=== PATIENT | female | born 1985 | race Caucasian/White ===

== ENCOUNTER → 2020-08-12 10:50 | Outpatient (BNVA) | payer OTHER, SELFPAY | PROVIDERS: Visit Provider Advanced Practice Midwife | DX: Z32.01 Encounter for pregnancy test, result positive (principal) | CPT/HCPCS: 81025 ==

== ENCOUNTER → 2020-08-14 14:07 | Outpatient (BNVA) | payer OTHER, SELFPAY | PROVIDERS: Visit Provider Advanced Practice Midwife | DX: Z13.89 Encounter for screening for other disorder (principal) | CPT/HCPCS: 99212 ==

== ENCOUNTER 2020-09-04 09:24 | Outpatient (REF) | payer OTHER, SELFPAY ==
[2020-09-04 09:51] LABS: MANUAL DIFF FLAG NO
[2020-09-04 09:55] LABS: Basophils Absolute Auto 0.1 X10*3/uL (0.0-0.2); Basophils Percent Auto 0.6 % (0-2); Eosinophils Absolute Auto 0.1 X10*3/uL (0.0-0.4); Eosinophils Percent Auto 0.7 % (0-4); Hematocrit 38.4 % (37-47); Hemoglobin 12.7 g/dl (12.0-16.0); Imm Gran Abs Auto 0.06 X10*3/uL (0.00-0.03); Imm Gran Pct Auto 0.5 % (0.0-0.4); Lymphocytes Percent Auto 15.6 % (20-40); Mean Corpuscular HGB Conc 33.1 g/dl (31.0-35.0); Mean Corpuscular Hemoglobin 29.4 pg (27.0-33.0); Mean Corpuscular Volume 88.9 fL (80-98); Monocytes Absolute Auto 0.6 X10*3/uL (0.1-1.2); Monocytes Percent Auto 4.6 % (2-11); Neutrophils Absolute Auto 9.9 X10*3/uL (2.0-8.3); Platelet Count 365 X10*3/uL (160-400); Red Blood Count 4.32 X10*6/uL (4.20-5.50); Red Cell Distribution Width 12.8 % (11.0-16.0); White Blood Count 12.7 X10*3/uL (4.8-10.8)
[2020-09-04 10:48] LABS: HBsAGNum1 0.17 S/CO (0.00-0.99); HIV AB/AG Nonreactive (Nonreactive); HIV Num 1 0.06 S/CO (0.00-0.99); Hepatitis B Surface Antigen Negative (Negative)
[2020-09-04 11:12] LABS: ~HepC Num1 0.08 S/CO (0.00-0.79); ~Hepatitis C Antibody Nonreactive (Nonreactive)
[2020-09-04 11:38] LABS: Amphetamine Screen Urine Not Detected (Not Detect); Barbiturates, Urine Not Detected (Not Detect); Benzodiazepines Screen Urine Not Detected (Not Detect); Cannabinoid Screen Urine Not Detected (Not Detect); Cocaine Screen Urine Not Detected (Not Detect); Opiate Screen Urine Not Detected (Not Detect); Phencyclidine Screen Urine Not Detected (Not Detect)
[2020-09-05 04:31] LABS: Syphilis Screen Nonreactive (Nonreactive)
[2020-09-05 14:13] LABS: Rubella IgG Antibody 8.09 Index
== END 2020-09-04 09:25 | disposition home or self-care (01) ==
LOC: HO.LAB 09:24
PROVIDERS: PCP Internal Medicine; Visit Provider Advanced Practice Midwife
DX: O34.219 Maternal care for unspecified type scar from previous cesarean delivery (principal)
CPT/HCPCS: 80307; 85025; 86762; 86780; 86787; 86803; 86850; 86900; 86901; 87086; 87340; 87389

== ENCOUNTER 2020-09-10 15:47 | Outpatient (REF) | payer OTHER, SELFPAY ==
[2020-09-11 03:44] LABS: CT PCR NOT DETECTED (Not Detect.); NG PCR NOT DETECTED (Not Detect.)
[2020-09-11 14:32] LABS: BV Int Neg Control Negative (Negative); BV Int Pos Control Positive (Positive)
[2020-09-13 06:41] LABS: HPV mRNA E6/E7 rflx Not Detected (Not Detected)
== END 2020-09-10 15:48 | disposition home or self-care (01) ==
LOC: HO.LAB 15:47
PROVIDERS: Visit Provider Advanced Practice Midwife
DX: O34.219 Maternal care for unspecified type scar from previous cesarean delivery (principal); O09.521 Supervision of elderly multigravida, first trimester; Z3A.09 9 weeks gestation of pregnancy; Z20.2 Contact with and (suspected) exposure to infections with a predominantly sexual mode of transmission
CPT/HCPCS: 36415; 87480; 87491; 87510; 87591; 87624; 87660; 88142; 99212

== ENCOUNTER 2020-09-26 09:00 | Outpatient (REF) | payer OTHER, SELFPAY ==
--- NOTE | ~2020-09-26 | US_ITS ---
EXAMINATION: OBSTETRICAL ULTRASOUND, FIRST TRIMESTER HISTORY: 35-year-old at 11.6 weeks of gestation AMA Antidepressant medication NT screening COMPARISON: None TECHNIQUE: Real time transabdominal imaging with color and M-mode Doppler. FINDINGS: A single, live IUP CRL of 63.0 mm c/w 12.5wks is noted. Heart Rate: 158 beats per minute. Normal yolk sac seen. NT was 1.12.mm. NB Present The embryo appears sonographically wnl for this GA. Right ovary is within normal limits. The left was not visualized GESTATIONAL AGE: 1. Established GA: 11.6 wks 2. GA from AUA: 12.5 wks ESTIMATED DATE OF DELIVERY: 1. Established BELA: 04/11/2021 2. BELA from [facility]: 04/05/1931 US/US OB 1T nuc measure IMPRESSION: 1. A single live IUP 2. Size equals dates 3. NT of 1.12 mm MFM Consultation: I reviewed the ultrasound findings along with significance of NT measurement. The NT of less than 3mm is generally reassuring. However, the sensitivity for T21 detection is only 60%. I reviewed the availability of serum aneuploidy screening which includes cell-free DNA and placental protein based tests. I discussed the sensitivity, false-positive rate, and other limitations associated with each test. I also reviewed the availability of invasive diagnostic tests that are associated small but definite risk of miscarriage. We also reviewed the differences between screening tests and diagnostic tests. After our discussion, she opted for the First trimester screening that is based on cell-free DNA or non-invasive testing (NIPT). Patient is taking venlafaxine which is a combined nor epinephrine and cerebellar tendon reuptake inhibitor for depression. Its use in is acceptable as long as there is a maternal indication. To date animal studies have not shown increased incidence of congenital abnormalities. There is not an data in human for any conclusions. There is a increased the risk of adaptation syndrome. Neonatologists should be made aware. She has a history of migraines and is Rizatriptan as needed. Its category C. Insufficient human data but there are animal studies seem to suggest that its use is not increase the risk of congenital abnormalities. However there are reports of a spontaneous miscarriage in the first trimester but not statistically significant. A follow up at 18 weeks for survey has been scheduled. Thank you very much for this referral. Total time 30 minutes. The time spent was devoted to counseling the patient about the disease and diagnosis, coordinating care including reviewing her records, pertinent lab data and studies, as well as discussing diagnostic evaluation and workup, plan therapeutic interventions and future disposition of care. This includes any additional research needed to obtain further information in formulating the plan of care of this patient. This note was generated with a voice recognition program. Please excuse any errors which may have been overlooked during my review of this note. Sometimes these errors may affect the content or meaning of a given sentence.
== END 2020-09-26 09:01 | disposition home or self-care (01) ==
LOC: HO.US 09:00
PROVIDERS: PCP Internal Medicine; Visit Provider Advanced Practice Midwife
DX: Z36.82 Encounter for antenatal screening for nuchal translucency (principal)
CPT/HCPCS: 76813

== ENCOUNTER → 2020-10-08 15:46 | Outpatient (BNVA) | payer OTHER, SELFPAY | PROVIDERS: PCP Internal Medicine; Visit Provider Obstetrics & Gynecology | DX: Z34.90 Encounter for supervision of normal pregnancy, unspecified, unspecified trimester (principal); Z3A.13 13 weeks gestation of pregnancy | CPT/HCPCS: 81003; 99212 ==

== ENCOUNTER 2020-11-05 15:07 | Outpatient (REF) | payer OTHER, SELFPAY ==
[2020-11-14 17:47] LABS: CF Ethnicity CAUCASIAN; Cystic Fibrosis NEGATIVE (NEGATIVE)
== END 2020-11-05 15:08 | disposition home or self-care (01) ==
LOC: HO.LAB 15:07
PROVIDERS: PCP Internal Medicine; Visit Provider Obstetrics & Gynecology
DX: Z34.90 Encounter for supervision of normal pregnancy, unspecified, unspecified trimester (principal)
CPT/HCPCS: 36415; 81220; 82105; 99212

== ENCOUNTER 2020-11-14 13:03 | Outpatient (REF) | payer OTHER, SELFPAY ==
--- NOTE | ~2020-11-14 | US_ITS ---
EXAMINATION: US OBSTETRICAL CLINICAL INFORMATION: 35-year-old at 19.4 weeks of gestation AMA Suspected anomaly COMPARISON: 09/27/2019 TECHNIQUE: Real-time transabdominal ultrasound was performed using C1-5 megahertz transducer. FINDINGS: A single, active, fetus is seen in transverse presentation. The placenta is posterior without previa, and the amniotic fluid volume is wnl. MEASUREMENTS: 1. Biparietal Diameter: 4.5 cm; 19.4 wks 2. Occipital Frontal Diameter: 5.9 cm 3. Head Circumference: 16.8 cm; 19.3 wks 4. Abdominal Circumference: 14.3 cm; 19.5 wks 5. Femur Length: 2.7 cm; 18.3 wks 6. Humerus Length: 2.9 cm; 19.3 wks 7. Tibia Length: 2.5 cm; 19.0 wks 8. Ulna Length: 2.6 cm; 19.2 wks 9. Lateral ventricle: 0.7 cm 10. Cerebellum: 1.9 cm; 19 point wks 11. Cisterna Magna: 0.5 cm 12. Nuchal Fold: 3.6 mm 13. Heart Rate: 153 beats per minute Rt ovary: normal Lt ovary: normal Cervical length 4.7 cm on T/A. GESTATIONAL AGE: 1. Established GA: 18.6 wks 2. GA from [facility]: 19.2 wks ESTIMATED DATE OF DELIVERY: 1. Established BELA: 04/11/2021 2. BELA from [facility]: 04/08/2021 ANATOMY: The visualized anatomy includes but not limited to: 1. Cranium: Normal 2. Intracranial anatomy: cavum septum pellucidi, lateral ventricles, choroid plexus, cerebellum, posterior fossa, third and fourth ventricles. 3. face: orbits, lip/palate, profile, nasal bone 4. Heart: four-chamber view of the heart, ventricular septum, foramen ovale, pulmonary vein, left and right outflow tracts, three-vessel view, 3 vessel trachea view, aortic and ductal arches, situs.. 5. Diaphragm: Normal 6. Abdominal wall: Normal 7. Cord Insertion: Normal 8. Spine: Cervical, thoracic, lumbar, sacral. 9. Stomach: Normal size and shape 10. Right Kidney: Normal 11. Left Kidney: Normal 12. 3 vessel cord: Normal 13. Upper extremity: Open hands, fifth digit. 14. Lower extremity: Tibia, fibula, bilateral feet. 15. Bladder: Normal 16. Genitalia: Male, patient aware US/US OB /maternal detail IMPRESSION: 1. Single, living, intrauterine with appropriate biometry. 2. Normal survey DISCUSSION: I reviewed today's ultrasound findings. We discussed the limitations of ultrasound in diagnosing aneuploidy and other congenital abnormalities. I reviewed the differences between screening test and diagnostic test. Amniocentesis was discussed and declined. She was informed that the baseline incidence of congenital abnormalities is approximately 3-5%. Not all these conditions are diagnosable in utero. RECOMMENDATIONS: 1. Follow-up when necessary. Thank you for allowing me to participate in her care. Total time 30 minutes. The time spent was devoted to counseling the patient about the disease and diagnosis, coordinating care including reviewing her records, pertinent lab data and studies, as well as discussing diagnostic evaluation and workup, plan therapeutic interventions and future disposition of care. This includes any additional research needed to obtain further information in formulating the plan of care of this patient. This note was generated with a voice recognition program. Please excuse any errors which may have been overlooked during my review of this note. Sometimes these errors may affect the content or meaning of a given sentence.
== END 2020-11-14 13:04 | disposition home or self-care (01) ==
LOC: HO.US 13:03
PROVIDERS: Visit Provider Obstetrics & Gynecology
DX: Z34.92 Encounter for supervision of normal pregnancy, unspecified, second trimester (principal); Z36.3 Encounter for antenatal screening for malformations
CPT/HCPCS: 76811

== ENCOUNTER → 2020-12-03 10:50 | Outpatient (BNVA) | payer OTHER, SELFPAY | PROVIDERS: PCP Internal Medicine; Visit Provider Obstetrics & Gynecology | DX: Z34.92 Encounter for supervision of normal pregnancy, unspecified, second trimester (principal); Z3A.21 21 weeks gestation of pregnancy | CPT/HCPCS: 99212 ==

== ENCOUNTER → 2020-12-31 10:33 | Outpatient (BNVA) | payer OTHER, SELFPAY | PROVIDERS: PCP Internal Medicine; Visit Provider Obstetrics & Gynecology | DX: O09.522 Supervision of elderly multigravida, second trimester (principal); O34.219 Maternal care for unspecified type scar from previous cesarean delivery; O99.342 Other mental disorders complicating pregnancy, second trimester; F41.8 Other specified anxiety disorders; Z3A.25 25 weeks gestation of pregnancy | CPT/HCPCS: 99212 ==

== ENCOUNTER 2021-01-20 11:04 | Outpatient (REF) | payer OTHER, SELFPAY ==
[2021-01-20 13:06] LABS: Hematocrit 32.6 % (37-47); Hemoglobin 10.5 g/dl (12.0-16.0); Mean Corpuscular HGB Conc 32.2 g/dl (31.0-35.0); Mean Corpuscular Hemoglobin 28.2 pg (27.0-33.0); Mean Corpuscular Volume 87.6 fL (80-98); Mean Platelet Volume 11.4 fL (9.4-12.3); Platelet Count 282 X10*3/uL (160-400); Red Blood Count 3.72 X10*6/uL (4.20-5.50); Red Cell Distribution Width 13.8 % (11.0-16.0); White Blood Count 14.9 X10*3/uL (4.8-10.8)
[2021-01-20 13:17] LABS: Glucose 1 Hour PP 50gm Dose 163 mg/dL (60-140)
[2021-01-21 09:17] LABS: Syphilis Screen Nonreactive (Nonreactive)
== END 2021-01-20 11:05 | disposition home or self-care (01) ==
LOC: HO.LAB 11:04
PROVIDERS: PCP Internal Medicine; Visit Provider Obstetrics & Gynecology
DX: O99.810 Abnormal glucose complicating pregnancy (principal); Z3A.00 Weeks of gestation of pregnancy not specified
CPT/HCPCS: 36415; 85027; 86780

== ENCOUNTER → 2021-01-21 10:44 | Outpatient (BNVA) | payer OTHER, SELFPAY | PROVIDERS: Visit Provider Obstetrics & Gynecology | DX: O99.810 Abnormal glucose complicating pregnancy (principal); O34.219 Maternal care for unspecified type scar from previous cesarean delivery; Z3A.28 28 weeks gestation of pregnancy | CPT/HCPCS: 99212 ==

== ENCOUNTER 2021-01-29 10:03 | Outpatient (REF) | payer OTHER, SELFPAY ==
[2021-01-29 11:42] LABS: Glucose Fasting 83 mg/dL (60-99)
[2021-01-29 12:05] LABS: Glucose 1 Hour 181 mg/dL
[2021-01-29 13:01] LABS: Glucose 2 Hour 137 mg/dL
[2021-01-29 14:54] LABS: Glucose 3 Hour 121 mg/dL
== END 2021-01-29 10:04 | disposition home or self-care (01) ==
LOC: HO.LAB 10:03
PROVIDERS: PCP Internal Medicine; Visit Provider Obstetrics & Gynecology
DX: O99.810 Abnormal glucose complicating pregnancy (principal)
CPT/HCPCS: 36415; 82951

== ENCOUNTER → 2021-02-06 13:01 | Outpatient (BNVA) | payer OTHER, SELFPAY | PROVIDERS: PCP Internal Medicine; Visit Provider Advanced Practice Midwife ==

== ENCOUNTER → 2021-02-11 10:51 | Outpatient (BNVA) | payer OTHER, SELFPAY | PROVIDERS: PCP Internal Medicine; Visit Provider Advanced Practice Midwife | DX: Z34.83 Encounter for supervision of other normal pregnancy, third trimester (principal); Z3A.31 31 weeks gestation of pregnancy | CPT/HCPCS: 81003; 99212 ==

== ENCOUNTER 2021-02-13 12:57 | Outpatient (REF) | payer OTHER, SELFPAY ==
--- NOTE | ~2021-02-13 | US_ITS ---
EXAMINATION: OBSTETRICAL ULTRASOUND, Follow up HISTORY: 36-year-old at the 31.6 weeks of gestation GDM on diet AMA COMPARISON: 11/14/2020 TECHNIQUE: Real time transabdominal imaging with color and M-mode Doppler. PRESENTATION: Vertex PLACENTA LOCATION: Posterior AMNIOTIC FLUID: EFREN 13.4 cm MEASUREMENTS: 1. Biparietal Diameter: 8.1 cm; 32.5 wks 2. Head Circumference: 31.0 cm; 34.5 wks 3. Abdominal Circumference: 30.1 cm; 34.1 wks 4. Femur Length: 5.8 cm; 30.2 wks 5. Heart Rate: 138 beats per minute WEIGHT: EFW: 2078 grams (4 lbs 9 oz) -- 73 %. BIOPHYSICAL PROFILE: Motion: 2 Tone: 2 Breathin Amniotic Fluid: 2 Total score: 8/8 GESTATIONAL AGE: 1. Established GA: 31.6 wks 2. GA from AUA: 33.0 wks ESTIMATED DATE OF DELIVERY: 1. Established BELA: 04/11/2021 2. BELA from COUNTS INCLUDE 234 BEDS AT THE [facility]: 04/03/2021 US/US OB follow up IMPRESSION: 1. A single active fetus is in vertex presentation 2. Size equals dates 3. BPP of 8/8 with normal EFREN According to the patient her glucose values are within target range on diet. 2 hour postprandial after dinner last night was 114. The fasting this morning was 92. Denies having had GDM with her first . I discussed the increased the incidence of macrosomia, polyhydramnios and hypoglycemia in women with gestational diabetes. As long as her glycemic values are within normal range on diet alone, follow-up in approximately 3 weeks is suggested (not scheduled). Thank you very much for this referral. Total time 30 minutes. The time spent was devoted to counseling the patient about the disease and diagnosis, coordinating care including reviewing her records, pertinent lab data and studies, as well as discussing diagnostic evaluation and workup, plan therapeutic interventions and future disposition of care. This includes any additional research needed to obtain further information in formulating the plan of care of this patient. This note was generated with a voice recognition program. Please excuse any errors which may have been overlooked during my review of this note. Sometimes these errors may affect the content or meaning of a given sentence.
== END 2021-02-13 12:58 | disposition home or self-care (01) ==
LOC: HO.US 12:57
PROVIDERS: Visit Provider Obstetrics & Gynecology
DX: O99.810 Abnormal glucose complicating pregnancy (principal)
CPT/HCPCS: 76816

== ENCOUNTER → 2021-03-02 09:19 | Outpatient (BNVA) | payer OTHER, SELFPAY | PROVIDERS: PCP Internal Medicine; Visit Provider Obstetrics & Gynecology | DX: O24.410 Gestational diabetes mellitus in pregnancy, diet controlled (principal); Z3A.34 34 weeks gestation of pregnancy | CPT/HCPCS: 99212 ==

== ENCOUNTER 2021-03-06 10:02 | Outpatient (REF) | payer OTHER, SELFPAY ==
--- NOTE | ~2021-03-06 | US_ITS ---
EXAMINATION: OBSTETRICAL ULTRASOUND, Follow up HISTORY: A 36-year-old at 34.6 weeks of gestation GDM A1 Size date discrepancy COMPARISON: 02/13/2021 TECHNIQUE: Real time transabdominal imaging with color and M-mode Doppler. PRESENTATION: Vertex PLACENTA LOCATION: Posterior without previa AMNIOTIC FLUID: EFREN at 13.7 cm MEASUREMENTS: 1. Biparietal Diameter: 9.0 cm; 36.3 wks 2. Head Circumference: 32.4 cm; 36.5 wks 3. Abdominal Circumference: 32.5 cm; 36.3 wks 4. Femur Length: 6.4 cm; 33.2 wks 5. Heart Rate: 150 beats per minute WEIGHT: EFW: 2740 grams (6 lbs 1 oz) -- 70 %. BIOPHYSICAL PROFILE: Motion: 2 Tone: 2 Breathin Amniotic Fluid: 2 Total score: 8/8 GESTATIONAL AGE: 1. Established GA: 34.6 wks 2. GA from AUA: 35.5 wks ESTIMATED DATE OF DELIVERY: 1. Established BELA: 04/11/2021 2. BELA from [facility]: 04/05/2021 US/US OB follow up IMPRESSION: 1. A single active fetus is in vertex presentation 2. Size equals dates 3. Reassuring biophysical profile The patient informs me that her fasting glucose values are in the mid 90s. She is no longer checking them. Majority of her postprandial values are below 120. I informed the patient that the glucose intolerance in may worsen as she approaches term. If needed, metformin can be added to her diet. Since she continues to do well on diet, her follow-up ultrasound in approximately 3 weeks is suggested. (Not scheduled). Thank you very much for this referral. Total time 30 minutes. The time spent was devoted to counseling the patient about the disease and diagnosis, coordinating care including reviewing her records, pertinent lab data and studies, as well as discussing diagnostic evaluation and workup, plan therapeutic interventions and future disposition of care. This includes any additional research needed to obtain further information in formulating the plan of care of this patient. This note was generated with a voice recognition program. Please excuse any errors which may have been overlooked during my review of this note. Sometimes these errors may affect the content or meaning of a given sentence.
== END 2021-03-06 10:03 | disposition home or self-care (01) ==
LOC: HO.US 10:02
PROVIDERS: Visit Provider Obstetrics & Gynecology
DX: O24.419 Gestational diabetes mellitus in pregnancy, unspecified control (principal)
CPT/HCPCS: 76816

== ENCOUNTER 2021-03-17 10:59 | Outpatient (REF) | payer OTHER, SELFPAY ==
[2021-03-18 09:21] LABS: CT PCR NOT DETECTED (Not Detect.); NG PCR NOT DETECTED (Not Detect.)
== END 2021-03-17 11:00 | disposition home or self-care (01) ==
LOC: HO.LAB 10:59
PROVIDERS: PCP Internal Medicine; Visit Provider Obstetrics & Gynecology
DX: O09.523 Supervision of elderly multigravida, third trimester (principal); O24.415 Gestational diabetes mellitus in pregnancy, controlled by oral hypoglycemic drugs; O26.893 Other specified pregnancy related conditions, third trimester; G43.909 Migraine, unspecified, not intractable, without status migrainosus; O34.211 Maternal care for low transverse scar from previous cesarean delivery; Z3A.36 36 weeks gestation of pregnancy; Z79.84 Long term (current) use of oral hypoglycemic drugs; Z79.899 Other long term (current) drug therapy
CPT/HCPCS: 87081; 87147; 87491; 87591; 99212

== ENCOUNTER 2022-06-17 15:38 | Emergency (ER) | payer SELFPAY ==
[2022-06-17 16:28] VITALS: BP 140/82; PULSE 70; RESP 19; TEMP 37; O2SAT 98; BMI 27.4
== END 2022-06-17 22:00 | disposition left against medical advice (07) ==
PROVIDERS: Emergency Provider Emergency Medicine; PCP Internal Medicine
DX: M67.431 Ganglion, right wrist (principal)
CPT/HCPCS: 99281